=== PATIENT | male | born 1955 | race Two or more races ===

== ENCOUNTER 2022-02-03 09:30 | Outpatient (CLI) | payer OTHER | END 2022-02-03 09:36 | disposition home or self-care (01) | LOC: LAB 09:30 | PROVIDERS: ATTEND Surgery Surgery of the Hand | DX: Z03.818 Encounter for observation for suspected exposure to other biological agents ruled out (principal) ==

== ENCOUNTER 2022-02-04 05:38 | Day surgery (SDC) | payer OTHER | END 2022-02-04 09:35 | disposition home or self-care (01) | LOC: CIR.AMB 05:38 | PROVIDERS: ATTEND Surgery Surgery of the Hand | DX: M72.0 Palmar fascial fibromatosis [Dupuytren] (principal); Z91.013 Allergy to seafood; Z20.822 Contact with and (suspected) exposure to COVID-19 ==

== ENCOUNTER 2022-09-14 09:20 | Outpatient (CLI) | payer OTHER | END 2022-09-14 09:42 | disposition home or self-care (01) | LOC: TOM 09:20 | PROVIDERS: ATTEND Internal Medicine | DX: R06.02 Shortness of breath (principal) ==

== ENCOUNTER 2023-01-22 15:18 | Outpatient (CLI) | payer OTHER | END 2023-01-22 15:21 | disposition home or self-care (01) | LOC: RAD 15:18 | PROVIDERS: ATTEND Internal Medicine Hematology & Oncology | DX: M54.59 Other low back pain (principal); M54.15 Radiculopathy, thoracolumbar region ==

== ENCOUNTER → 2024-08-16 | Outpatient (CLI) | payer OTHER | END | disposition home or self-care (01) | LOC: RAD 15:33 | DX: R06.02 Shortness of breath (principal); R05.9 Cough, unspecified ==

== ENCOUNTER → 2024-11-14 10:58 | Outpatient (CLI) | payer OTHER | END | disposition home or self-care (01) | LOC: NUCLEAR 10:58 | PROVIDERS: ATTEND Internal Medicine | DX: M81.0 Age-related osteoporosis without current pathological fracture (principal) ==